=== PATIENT | male | born 2000 | race African-American/Black ===

== ENCOUNTER 2022-06-20 11:32 | Emergency (ER) | payer MEDICAID, OTHER ==
[~2022-06-20] VITALS: Ht 170.2 cm; Wt 69.0 kg
[2022-06-20 11:35] VITALS: BP 152/81
[2022-06-20] MEDS ORDERED: ACETAMINOPHEN 325MG TABLET PO ONE (12:15)
== END 2022-06-20 13:36 | disposition home or self-care (01) ==
LOC: ER 11:32
DX: S40.011A Contusion of right shoulder, initial encounter (principal); S50.01XA Contusion of right elbow, initial encounter; R51.9 Headache, unspecified; R03.0 Elevated blood-pressure reading, without diagnosis of hypertension; Y35.813A Legal intervention involving manhandling, suspect injured, initial encounter; Y93.89 Activity, other specified; Y92.488 Other paved roadways as the place of occurrence of the external cause
CPT/HCPCS: 73030; 73080; 99284